=== PATIENT | female | born 1990 | race Caucasian/White ===

== ENCOUNTER 2018-07-18 14:43 | Emergency (ER) | payer MEDICAID ==
[~2018-07-18] VITALS: Ht 165.1 cm; Wt 110.0 kg
[~2018-07-18 14:43] MED LIST: AUGMENTIN875 MG OR; BACTROBAN2 % EX; CHERATUSSIN OR; FIORICET PO; NAPROSYN500 MG OR; NO HOME MEDS; ONDANSETRON4 MG PO; ROBITUSSIN AC10 ML PO; ZITHROMAX250 MG OR; ZOFRAN ODT4 MG PO
[2018-07-18] MEDS ORDERED: MOTRIN400 MG PO (15:48)
[2018-07-18 16:00] VITALS: BP 138/82
== END 2018-07-18 16:00 | disposition home or self-care (01) ==
LOC: ED 14:43
DX: S90.32XA Contusion of left foot, initial encounter (principal); F17.210 Nicotine dependence, cigarettes, uncomplicated; X50.0XXA Overexertion from strenuous movement or load, initial encounter; Y93.89 Activity, other specified

== ENCOUNTER 2018-09-26 06:29 | Emergency (ER) | payer MEDICAID ==
[~2018-09-26] VITALS: Ht 162.6 cm; Wt 115.0 kg
[~2018-09-26 06:29] MED LIST changes: +MOTRIN400 MG PO
[2018-09-26 06:34] VITALS: BP 136/74
[2018-09-26] MEDS ORDERED: TAM75CAP PO (07:37)
[2018-09-26] MEDS ORDERED: ZPAK PO (07:37)
== END 2018-09-26 07:47 | disposition home or self-care (01) ==
LOC: ED 06:29
DX: J02.9 Acute pharyngitis, unspecified (principal)

== ENCOUNTER 2021-03-08 11:44 | Emergency (ER) | payer MEDICAID ==
[~2021-03-08] VITALS: Ht 162.6 cm; Wt 117.0 kg
[~2021-03-08 11:44] MED LIST changes: +TAM75CAP PO; +ZPAK PO
[2021-03-08] MEDS ORDERED: CLEOCIN300 MG PO (13:25)
[2021-03-08] MEDS ORDERED: ULTRAM50 M1 PO (13:25)
[2021-03-08 13:37] VITALS: BP 126/93
== END 2021-03-08 13:40 | disposition home or self-care (01) ==
LOC: ED 11:44
DX: K04.7 Periapical abscess without sinus (principal)

== ENCOUNTER 2021-08-11 15:53 | Emergency (ER) | payer OTHER, MEDICAID ==
[~2021-08-11] VITALS: Ht 162.6 cm; Wt 120.0 kg
[~2021-08-11 15:53] MED LIST changes: +CLEOCIN300 MG PO; +ULTRAM50 M1 PO
[2021-08-11 15:56] VITALS: BP 137/100
[2021-08-11 16:00] VITALS: BP 162/99
[2021-08-11 16:01] VITALS: BP 162/99
[2021-08-11 16:26] LABS: URINE BILIRUBIN - DIPSTICK NEGATIVE (NEGATIVE); URINE BLOOD DIPSTICK TRACE-INTACT (NEGATIVE); URINE COLOR YELLOW; URINE GLUCOSE - DIPSTICK NEGATIVE (NEGATIVE); URINE KETONE NEGATIVE (NEGATIVE); URINE LEUK ESTERASE NEGATIVE (NEGATIVE); URINE PROTEIN - DIPSTICK NEGATIVE (NEG-TRACE); URINE SPECIFIC GRAVITY >=1.030; URINE UROBILINOGEN - DIPSTICK 0.2 E.U./dL (0.2)
[2021-08-11 16:29] LABS: URINE NITRITE - DIPSTICK NEGATIVE (Negative)
[2021-08-11] MEDS ORDERED: HYDROCO/APAP1 TA9 PO (17:57)
[2021-08-11] MEDS ORDERED: NAPROXEN500 MG PO (17:57)
[2021-08-11] MEDS ORDERED: FLEXERIL5 M1 PO (17:57)
== END 2021-08-11 18:16 | disposition home or self-care (01) | DRG 552 ==
LOC: ED 15:53
PROVIDERS: Nurse Practitioner
DX: S16.1XXA Strain of muscle, fascia and tendon at neck level, initial encounter (principal); F17.200 Nicotine dependence, unspecified, uncomplicated; V49.40XA Driver injured in collision with unspecified motor vehicles in traffic accident, initial encounter

== ENCOUNTER 2022-06-21 10:10 | Emergency (ER) | payer MEDICAID ==
[~2022-06-21] VITALS: Ht 162.6 cm; Wt 117.9 kg
[2022-06-21] VITALS (10 sets, daily range): BP systolic 106–152; BP diastolic 68–90
[~2022-06-21 10:10] MED LIST changes: +FLEXERIL5 M1 PO; +HYDROCO/APAP1 TA9 PO; +NAPROXEN500 MG PO
== END 2022-06-21 12:34 | disposition home or self-care (01) ==
LOC: ED 10:10
DX: M25.571 Pain in right ankle and joints of right foot (principal); M79.671 Pain in right foot; F17.200 Nicotine dependence, unspecified, uncomplicated